=== PATIENT | female | born 1960 | race Hispanic/Latino ===

== ENCOUNTER 2025-04-23 10:12 | Emergency (ER) | payer BC, SELFPAY ==
[2025-04-23 10:13] VITALS: BP 155/84; PULSE 79; RESP 16; TEMP 35.3; O2SAT 100
--- NOTE | 2025-04-23 10:44 | CT_ITS ---
PROCEDURE: BRAIN/HEAD WITHOUT CONTRAST; SPINE CERVICAL WITHOUT CONTRAS 04/23/2025 REASON FOR EXAM: TRAUMA TECHNIQUE: Procedure Code: CTBR; CTSPC Modality: CT Procedure: BRAIN/HEAD WITHOUT CONTRAST; SPINE CERVICAL WITHOUT CONTRAS Coronal and Sagittal reconstruction series were provided. One or more dose reduction techniques were used (e.g., Automated exposure control, adjustment of the mA and/or kV according to patient size, use of iterative reconstruction technique. RADIATION DOSE SUMMARY: CTDlvol: 14.70 mGy DLP: 1099.66 mGycm FINDINGS: CT head: Brain: CSF Spaces: Sinuses/Mastoids: Bones: CT cervical spine: Vertebrae: No acute bony abnormalities. Alignment: Anatomical. Disc levels: Mild degenerate changes without significant foraminal or canal stenosis. Soft tissues: Unremarkable. The lungs are clear. CT/Spine Cervical without Contras IMPRESSION: No acute intracranial abnormalities. No acute injury to the cervical spine. Reading Location: [id number]
--- NOTE | 2025-04-23 10:44 | RAD_ITS ---
PROCEDURE: SHOULDER MIN 2 VIEWS 04/23/2025 REASON FOR EXAM: Pain after trauma TECHNIQUE: Procedure Code: RADSH Modality: DX Procedure: SHOULDER MIN 2 VIEWS COMPARISON: None FINDINGS: No demonstrated fracture, or suspicious osseous lesion. Glenohumeral and AC joints aligned anatomically without significant degenerative change. No upper rib fracture or pneumothorax No suspicious soft tissue swelling or foreign body RAD/Shoulder min 2 Views IMPRESSION: Unremarkable right shoulder Reading Location: [id number]
--- NOTE | 2025-04-23 10:44 | CT_ITS ---
PROCEDURE: BRAIN/HEAD WITHOUT CONTRAST; SPINE CERVICAL WITHOUT CONTRAS 04/23/2025 REASON FOR EXAM: TRAUMA TECHNIQUE: Procedure Code: CTBR; CTSPC Modality: CT Procedure: BRAIN/HEAD WITHOUT CONTRAST; SPINE CERVICAL WITHOUT CONTRAS Coronal and Sagittal reconstruction series were provided. One or more dose reduction techniques were used (e.g., Automated exposure control, adjustment of the mA and/or kV according to patient size, use of iterative reconstruction technique. RADIATION DOSE SUMMARY: CTDlvol: 14.70 mGy DLP: 1099.66 mGycm FINDINGS: CT head: Brain: CSF Spaces: Sinuses/Mastoids: Bones: CT cervical spine: Vertebrae: No acute bony abnormalities. Alignment: Anatomical. Disc levels: Mild degenerate changes without significant foraminal or canal stenosis. Soft tissues: Unremarkable. The lungs are clear. CT/Brain/Head without Contrast IMPRESSION: No acute intracranial abnormalities. No acute injury to the cervical spine. Reading Location: [id number]
--- NOTE | 2025-04-23 10:45 | ED.VIS.FALL ---
HPI HPI - Fall History of Present Illness Chief Complaint: Fall Informant: patient and spouse/S.O. Narrative Narrative: 64-year-old female presenting to the emergency room following a fall. Patient was going down the stairs in the dark carrying some pots and pans. She missed stepped missing the last step before landing and ended up falling forward. She states she struck her head at the bottom of the stairs. She notes pain right side of her neck going into the right shoulder. She notes an abrasion to the bilateral legs. She does not take any blood thinners. She denies any chest or abdominal symptoms. She notes the right hand and elbow do not hurt. She states she struck the back of her head. PFSH PFSH Medical History Former smoker Allergy/AdvReac Type Severity Reaction Status Date / Time codeine Allergy Mild PT UNSURE Verified 04/23/25 10:15 OF REACTION Social History Smoking Status: Former smoker ROS ROS ED Constitutional Constitutional ED: Denies chills, fever(s) or weight loss Eyes Eyes: Denies change in vision or diplopia ENT ENT ED: Denies ear pain, rhinorrhea or sore throat Cardiovascular Cardiovascular: Denies chest pain, orthopnea, palpitations or racing heartbeat Respiratory/Chest Respiratory/Chest: Denies cough, dyspnea or orthopnea Gastrointestinal Gastrointestinal: Denies abdominal pain, diarrhea, nausea or vomiting Genitourinary Genitourinary ED: Denies dysuria, hematuria or urinary frequency Musculoskeletal Musculoskeletal: Reports neck pain and other Details: Right shoulder pain ; Denies arthralgias or myalgias Integumentary Reports Abrasions; Denies abscess or rash Neurologic Neurologic: Denies headache(s) or weakness Psychiatric Psychiatric: Denies anxiety, depression, suicidal ideation or suicidal thoughts Endocrine Endocrinology: Denies polydipsia, polyphagia or polyuria Allergic/Immunologic Allergic/Immunologic ED: Denies mouth swelling, tongue swelling or urticaria EXAM Physical Exam Const Vital Signs: 04/23/25 10:13 04/23/25 10:59 04/23/25 11:13 Temperature 95.6 F L Temperature Source Temporal Pulse Rate 79 89 Respiratory Rate 16 18 Respiratory Effort Normal Respiratory Depth Normal Blood Pressure 155/84 H 111/88 H Blood Pressure Mean 107 95 Pulse Ox 100 100 Oxygen Delivery Method Room Air Room Air Room Air 04/23/25 12:14 04/23/25 12:59 Temperature 98.7 F Temperature Source Pulse Rate 92 92 Respiratory Rate 18 Respiratory Effort Respiratory Depth Blood Pressure 118/71 118/71 Blood Pressure Mean 86 86 Pulse Ox 99 99 Oxygen Delivery Method Room Air Positive well nourished and well developed General Appearance ED: well developed and NAD HEENT Reports normocephalic, head/scalp atraumatic and moist mucous membranes Eyes PERRL and EOMs intact bilaterally Neck no lymphadenopathy, supple and no JVD Neck Narrative: Mild tenderness to palpation of the posterior right cervical musculature. No midline tenderness. Chest Wall inspection of chest normal and palpation of chest normal Resp normal respiratory effort and clear to auscultation bilaterally Cardio regular rate, regular rhythm and no murmurs GI normal to inspection, nondistended, normoactive bowel sounds and non-tender Palpation: soft Back/Spine no CVA tenderness and normal ROM Extremity Extremity Narrative: Patient reports diffuse tenderness along the clavicle without hematoma or deformity. She notes tenderness in the right supraspinatus and AC joint region. There is no obvious dislocation or deformity. No significant swelling is noted at this time. General Extremety ED: Negative for edema General Extremity: Negative for edema Neuro oriented x3 and CN's II-XII intact bilaterally Nephi Coma Scale: document GCS findings Spontaneous Obeys Commands Oriented 15 Sensorium / Orientation: alert Motor Exam: strength 5/5 throughout Psych mental status grossly normal Mood & Affect: Negative for depressed or tearful Skin no rashes or lesions noted Skin Narrative: There are superficial abrasions/skin tear to the right anterior lower thigh and the left proximal to mid anterior leg. MDM MDM MDM Narrative Medical decision making narrative: Differential diagnosis includes cervical spine injury cervical fracture intracranial hemorrhage hematoma skull fracture shoulder fracture clavicular fracture abrasion laceration CT of the brain and cervical spine did not demonstrate acute findings. My independent interpretation of the right shoulder is possible lateral clavicular nondisplaced fracture near the AC joint. Patient also noted to nursing she had pain in the right ankle. My independent interpretation of the plain films of the right ankle is no acute fracture. She has been able to ambulate. Wounds were cleansed and dressed. She will utilize the sling. I will have her follow-up with orthopedics. Patient received a dose of hydrocodone here in the department. I would recommend ice local wound care. Return if worsening or concerns History & Record Review Discussion w/independent historian: Patient and Significant other Radiography Diagnostic Testing: Clinical Impression(s) from Imaging Studies Brain CT 04/23/25 10:44 IMPRESSION: No acute intracranial abnormalities. No acute injury to the cervical spine. Reading Location: [facility] Cervical Spine CT 04/23/25 10:44 IMPRESSION: No acute intracranial abnormalities. No acute injury to the cervical spine. Reading Location: [facility] Shoulder X-Ray 04/23/25 10:44 IMPRESSION: Unremarkable right shoulder Reading Location: [id number] Ankle X-Ray 04/23/25 11:45 IMPRESSION: No acute abnormality is noted involving the right ankle. If the patient's symptoms continue or worsen follow-up imaging is recommended. Reading Location: [facility] Discharge Plan Triage Chief Complaint: Fall ED Provider: Carlos Nguyen Dx/Rx/DC Orders Clinical Impression: Fall, Acute cervical myofascial strain, Head injury, Fx clavicle, acrom end-closed, Abrasion Instructions: ED Fracture, Clavicle, ED Head Injury (Adult), ED Neck Sprain or Strain Primary Care Provider: Anuel Starr MD Referrals: Anuel Starr MD [Other] Matt Gomez DO [Med Staff - Active Staff, [facility]] - 1-2 Weeks Print Language: Somali Disposition Disposition: Home, Self Care Discharge Date/Time: 04/23/25 12:59
[2025-04-23] MEDS: HYDROcodone Bitartrate/Apap 5/325 Tablet PO (10:57)
[2025-04-23 10:58] VITALS: BMI 23.7
[2025-04-23 11:13] VITALS: BP 111/88; PULSE 89; RESP 18; O2SAT 100
--- NOTE | 2025-04-23 11:45 | RAD_ITS ---
PROCEDURE: Right ankle 04/23/2025 REASON FOR EXAM: INJURY TECHNIQUE: Procedure Code: RADANK Modality: DX Procedure: ANKLE MIN 3 VIEWS Laterality: Right COMPARISON: None FINDINGS: Bones: There is normal mineralization of the osseous structures. There are no fractures or dislocations. A small spur is seen off the plantar surface of the calcaneus. Calcification is seen on the calcaneus at the insertion site of the Achilles tendon. Joints: Ankle mortise is intact. Joint spaces are well-maintained. Soft tissues: No appreciable soft tissue swelling is noted. RAD/Ankle min 3 Views IMPRESSION: No acute abnormality is noted involving the right ankle. If the patient's symp toms continue or worsen follow-up imaging is recommended. Reading Location: [id number]
[2025-04-23 12:14] VITALS: BP 118/71; PULSE 92; O2SAT 99
[2025-04-23 12:59] VITALS: BP 118/71; PULSE 92; RESP 18; TEMP 37.1; O2SAT 99
== END 2025-04-23 12:59 | disposition home or self-care (01) ==
PROVIDERS: Emergency Provider Emergency Medicine; Visit Provider Emergency Medicine
DX: S09.90XA Unspecified injury of head, initial encounter (principal); S80.812A Abrasion, left lower leg, initial encounter; S80.811A Abrasion, right lower leg, initial encounter; W10.9XXA Fall (on) (from) unspecified stairs and steps, initial encounter; Z87.891 Personal history of nicotine dependence; S16.1XXA Strain of muscle, fascia and tendon at neck level, initial encounter; S42.031A Displaced fracture of lateral end of right clavicle, initial encounter for closed fracture
CPT/HCPCS: 70450; 72125; 73030; 73610; 99283